=== PATIENT | female | born 1965 | race Caucasian/White ===

== ENCOUNTER 2016-11-13 02:57 | Emergency (ER) | payer MEDICAID ==
[2016-11-13] MEDS ORDERED: Sodium Chloride 0.9% 1,000 ML IV ONE (03:24)
[2016-11-13 03:37] LABS: BASO # 0.1 K/uL (0.0-0.2); BASO % 0.7 % (0.0-2.0); EOS # 0.1 K/uL (0.0-0.7); EOS % 1.4 % (0.0-4.0); HEMATOCRIT 39.1 % (34.0-47.0); LYMPH # 2.2 K/uL (1.0-4.3); LYMPH % 24.4 % (20.0-40.0); MEAN CELL VOLUME 87.8 fL (81.0-99.0); MEAN PLATELET VOLUME 8.9 fL (7.2-11.7); MONO # 0.8 K/uL (0.0-0.8); MONO % 8.8 % (0.0-10.0); RED CELL DISTRIBUTION WIDTH 13.5 % (11.5-14.5); WHITE BLOOD COUNT 9.1 K/uL (4.8-10.8)
[2016-11-13 03:38] LABS: RBC URINE < 1 /hpf (0-3); URINE BACTERIA RARE (<OCC); URINE BILIRUBIN NEGATIVE (NEGATIVE); URINE BLOOD NEGATIVE (NEGATIVE); URINE COLOR Straw (YELLOW); URINE GLUCOSE (UA) NORMAL (Normal); URINE KETONE NEGATIVE (NEGATIVE); URINE LEUKOCYTE ESTERASE NEG Leu/uL (Negative); URINE PROTEIN NEGATIVE (NEGATIVE); URINE UROBILINOGEN NORMAL mg/dL (0.2-1.0); WBC URINE 1 /hpf (0-5)
[2016-11-13 03:39] LABS: CHLORIDE 99 mmol/L (98-107)
[2016-11-13 03:40] LABS: POTASSIUM 3.5 mmol/L (3.6-5.2); SODIUM 137 mmol/L (132-148)
[2016-11-13 03:42] LABS: ALB/GLOB RATIO 1.1 (1.0-2.1); ALKALINE PHOSPHATASE 104 U/L (38-126); ALT/SGPT 27 U/L (9-52); AST/SGOT 17 U/L (14-36); BILIRUBIN,TOTAL 0.6 mg/dL (0.2-1.3); BLOOD UREA NITROGEN 12 mg/dL (7-17); CARBON DIOXIDE 25 mmol/L (22-30); GFR AFRICAN-AMERICAN > 60; GLUCOSE,RANDOM 104 mg/dL (65-105); TOTAL PROTEIN 7.6 g/dL (6.3-8.3)
[2016-11-13 03:43] LABS: CALCIUM 9.4 mg/dl (8.6-10.4)
[2016-11-13] MEDS ORDERED: Aluminum Hydroxide/Magnesium Hydroxide Susp (30 mL) PO STA (05:33)
--- NOTE | 2016-11-13 05:37 | C.PDOC ---
History Of Present Illness A 51 y/o female with H/o Gastritis c/o intermittent epigastric pain and vomiting for the past 3 days. Pt notes the pain is worse after eating and took Pepcid with no relief. Pt reports the pain was worse tonight which prompted the visit. Pt denies diarrhea, constipation, recent travels, sick contact, fever, chills, weakness, dysuria, hematuria, or any other complaints. Time Seen by Provider: 11/13/16 03:20 Chief Complaint (Nursing): Abdominal Pain History Per: Patient History/Exam Limitations: no limitations Onset/Duration Of Symptoms: Days Current Symptoms Are (Timing): Still Present Severity: Moderate Location Of Pain/Discomfort: Epigastric Quality Of Discomfort: "Pain" Associated Symptoms: Vomiting Recent travel outside of the [place]: No Additional History Per: Patient Abnormal Vaginal Bleeding: No Past Medical History Reviewed: Historical Data, Nursing Documentation, Vital Signs Vital Signs: Last Vital Signs Temp 97.9 F 11/13/16 03:06 Pulse 72 11/13/16 03:06 Resp 16 11/13/16 03:06 BP 148/103 H 11/13/16 03:06 Pulse Ox 97 11/13/16 05:38 - Medical History PMH: Back Problems (scoliosis), Depression, HTN, Hypercholesterolemia Surgical History: (x 3) Family History: States: Unknown Family Hx - Social History Hx Alcohol Use: No Hx Substance Use: No - Immunization History Hx Tetanus Toxoid Vaccination: Yes Hx Influenza Vaccination: Yes Hx Pneumococcal Vaccination: No Review Of Systems Constitutional: Negative for: Fever, Chills Gastrointestinal: Positive for: Vomiting, Abdominal Pain. Negative for: Diarrhea Genitourinary: Negative for: Dysuria, Hematuria Neurological: Negative for: Weakness, Numbness Physical Exam - Physical Exam Appears: Non-toxic, No Acute Distress Skin: Warm, Dry Head: Atraumatic, Normacephalic Eye(s): bilateral: Normal Inspection, PERRL, EOMI Oral Mucosa: Moist Chest: Symmetrical Cardiovascular: Rhythm Regular Respiratory: Normal Breath Sounds, No Accessory Muscle Use, No Rales, No Rhonchi , No Wheezing Gastrointestinal/Abdominal: Soft, Tenderness (Epigastric tenderness. NO RUQ and RLQ tenderness.), No Distention, No Guarding, No Rebound Back: Normal Inspection, No CVA Tenderness Neurological/Psych: Oriented x3, Normal Speech, Normal Cognition, Other (No focal deficit) ED Course And Treatment - Laboratory Results Result Diagrams: 11/13/16 03:31 11/13/16 03:31 O2 Sat by Pulse Oximetry: 97 (RA) Pulse Ox Interpretation: Normal Progress Note: Impression: A 51 y/o male c/o intermittent epigastric pain and vomiting for the past 3 days. Plans: Zofran, Morphine, Pepcid, Maalox, Reassess. 0530- c/o burning to epigastric area, and nausea. Maalox and zofran IV given-. 0600- Pt is tolerating po and reports improvement of pain, abdomen now soft non tender. Pt was instructed to follow up with PMD if symptoms returned with increased pain or a development of a fever. Disposition Counseled Patient/Family Regarding: Studies Performed, Diagnosis, Need For Followup - Disposition Referrals: [facility] [Outside] Disposition: HOME/ ROUTINE Disposition Time: 05:54 Condition: STABLE Additional Instructions: Please follow up in clinic Take meds as directed Avoid spicy, greasy foods, milk or dairy products Return to ER if worse Prescriptions: Aluminum Hydroxide/Magnesium H [Maalox 30 ml] 30 ml PO TID #100 ml Phenobarb/Hyoscy/Atropine/Scop [ Tablet] 16.2 mg PO BID #14 tablet Instructions: Gastritis (ED) Print Language: SAMOAN - Clinical Impression Clinical Impression: Gastritis - Scribe Statement The provider has reviewed the documentation as recorded by the Scribdori ho All medical record entries made by the Scribe were at my direction and personally dictated by me. I have reviewed the chart and agree that the record accurately reflects my personal performance of the history, physical exam, medical decision making, and the department course for this patient. I have also personally directed, reviewed, and agree with the discharge instructions and disposition.
[2016-11-13] MEDS ORDERED: Aluminum Hydroxide/Magnesium Hydroxide Susp (30 mL) ONE (05:42)
[2016-11-13 06:10] VITALS: BP 120/60; PULSE 85; RESP 20; TEMP 98.2; O2SAT 100
== END 2016-11-13 06:21 | disposition home or self-care (01) ==
LOC: C.ER 02:57
DX: K29.70 Gastritis, unspecified, without bleeding (principal)
CPT/HCPCS: 80053; 81001; 83690; 84703; 85025; 96361; 96374; 96375; 96376; 99284; J2270; J2405; J7040

== ENCOUNTER 2017-11-06 20:45 | Emergency (ER) | payer MEDICAID, OTHER ==
[2017-11-06 20:54] VITALS: BP 160/90; PULSE 78; RESP 20; TEMP 98.1; O2SAT 96
[2017-11-06] MEDS ORDERED: Lidocaine 2% Inj (20ml) INFIL ONE (20:55)
--- NOTE | 2017-11-06 20:55 | C.PDOC ---
History Of Present Illness 52 yo female w/o significant PMHx BIBA for evaluation of laceration to forehead sustained [employer], tripped outside, while walking, hit the ground. Pt denies LOC, syncope, headache, dizziness, N/V, visual changes, focal deficits, neck pain, CP , SOB, dyspnea, diaphoresis, palpitation, abd. pain, back pain, denies deformity , weakness to B/L UEs and LEs. Ambulatory in ED with stable gait, not in any apparent distress. Time Seen by Provider: 11/06/17 20:48 Chief Complaint (Nursing): Abnormal Skin Integrity History Per: Patient Onset/Duration Of Symptoms: Sudden Onset Past Medical History Reviewed: Historical Data, Nursing Documentation Vital Signs: Last Vital Signs Temp 98.1 F 11/06/17 20:50 Pulse 78 11/06/17 20:50 Resp 20 11/06/17 20:50 BP 160/90 H 11/06/17 20:50 Pulse Ox 96 11/06/17 21:17 - Medical History PMH: Back Problems (scoliosis), Depression, HTN, Hypercholesterolemia Surgical History: (x 3) Family History: States: Unknown Family Hx - Social History Hx Alcohol Use: No Hx Substance Use: No - Immunization History Hx Tetanus Toxoid Vaccination: No Hx Influenza Vaccination: Yes Hx Pneumococcal Vaccination: No Review Of Systems Except As Marked, All Systems Reviewed And Found Negative. Constitutional: Negative for: Fever, Chills Eyes: Negative for: Vision Change ENT: Negative for: Ear Discharge, Nose Discharge Cardiovascular: Negative for: Chest Pain, Palpitations, Edema, Light Headedness Respiratory: Negative for: Shortness of Breath Gastrointestinal: Negative for: Nausea, Vomiting, Abdominal Pain, Diarrhea Genitourinary: Negative for: Dysuria, Incontinence Musculoskeletal: Negative for: Neck Pain, Back Pain Skin: Positive for: Lesions Neurological: Negative for: Weakness, Numbness, Altered Mental Status, Headache , Dizziness Physical Exam - Physical Exam Appears: Well, Non-toxic, No Acute Distress Skin: Normal Color, Warm, Dry, No Ecchymosis Head: Normacephalic, No Tenderness, No Swelling, Laceration (stellate laceration Right forehead 2cm length, cutaneous, mild bloody oozing noted. No wound FB. No palpable deformity.) Eye(s): bilateral: PERRL Ear(s): Bilateral: Normal Nose: No Deformity, No Tenderness Oral Mucosa: Moist, No Drooling, No Trismus Tongue: No Laceration Lips: No Laceration Teeth: No Tender To Palpation, No Loose Throat: No Drooling Neck: Normal ROM, Trachea Midline, No Midline Cervical Tenderness, No Paracervical Tenderness, No Step Off Deformity, Supple Chest: Symmetrical, No Deformity, No Tenderness Cardiovascular: Rhythm Regular Respiratory: No Decreased Breath Sounds, No Accessory Muscle Use, No Stridor, No Wheezing Gastrointestinal/Abdominal: Soft, No Tenderness, No Distention, No Guarding, No Rebound Back: No Vertebral Tenderness, No Paraspinal Tenderness Extremity: Normal ROM, No Tenderness, No Deformity, No Swelling Neurological/Psych: Oriented x3, Normal Speech, Normal Motor, Normal Sensation, Normal Reflexes ED Course And Treatment O2 Sat by Pulse Oximetry: 96 Pulse Ox Interpretation: Normal Progress Note: On re-eval, pt is afebrile, hemodynamicalys table. Non-toxic. Ambulatory in ED with stable gait. PulseOx 96% RA. Head:NC, (+) right forehead laceration closed with sutures, no edema, no palpable deformity. Neck : Supple, (-) midline tenderness. Lungs: CTA B/L, BS equal B/L. CVS: (+)S1S2, reg. Abd: benign, (-) guarding, (-) rebound. Neurologicaly intact. Pt has clinical findings c/w head injury s/po mechanical fall, forehead laceration. Pt advised OBS 48 hrs for any sign of head injury-return ifa fl new hcanges Advise odn wound care. ref. to f/u with PMD in 2 days for re-eavl. return to ED if any worsening or new changes. Laceration - Laceration Repair Right forehead Wound Length (In cm): 2cm Description Of Wound: Stellate Wound Cleansed With: Betadine Anesthesia: Lidocaine 2% Wound Examination: Irrigated With Saline, No FB With Wound Exploration Wound Closure: Suture (#5) Suture Technique And Material Used: Interrupted, Prolene (5-0) Wound Complexity: Simple Disposition Counseled Patient/Family Regarding: Diagnosis, Need For Followup - Disposition Referrals: Eileen Stern MD [Medical Doctor] - Disposition: HOME/ ROUTINE Disposition Time: 21:44 Condition: STABLE Additional Instructions: OBSERVE 48 HOURS FOR ANY SIGN OF HEAD INJURY-INTRACTABLE HEADACHE, VOMITING, VISUAL CHANGES, FOCAL DEFICITS OR ANY OTHER NEW CHANGES-RETURN TO ED IMMEDIATELY FOR RE-EVALUATION. KEEP WOUND CLEAN, DRY, APPLY ANTIBIOTIC CREAM TOPICALLY DAILY TO WOUND SUTURE REMOVAL IN 5-7 DAYS FOLLOW UP WITH PMD IN 2 DAYS FOR RE-EVALUATION. Instructions: Closed Head Injury (DC), Laceration Repair With Stitches (DC) Forms: [employer] (Puerto Rican) Print Language: MALAGASY - Clinical Impression Clinical Impression: Laceration of forehead, Head injury
[2017-11-06] MEDS ORDERED: Tdap Vaccine 0.5 ml Vial (10-64 yrs) IM ONE (21:00)
[2017-11-06] MEDS ORDERED: Lidocaine 2% MPF (5 ml) Inj ONE (21:04)
[2017-11-06] MEDS ORDERED: Tetanus/Diphtheria Toxoids 0.5 ml Syringe IM ONE (21:05)
[2017-11-06] MEDS ORDERED: Bacitracin 500 Units/gm Oint Foilpak UD ONE (21:42)
[2017-11-06] MEDS ORDERED: Bacitracin Ointment 30 GM TUBE TOP STA (21:45)
== END 2017-11-06 22:00 | disposition home or self-care (01) ==
LOC: C.ER 20:45
DX: S01.81XA Laceration without foreign body of other part of head, initial encounter (principal); W01.0XXA Fall on same level from slipping, tripping and stumbling without subsequent striking against object, initial encounter; Y93.01 Activity, walking, marching and hiking; Z23 Encounter for immunization

== ENCOUNTER 2017-11-11 09:50 | Emergency (ER) | payer MEDICAID ==
[2017-11-11 10:09] VITALS: BP 127/81; PULSE 60; RESP 16; TEMP 98.4; O2SAT 99
--- NOTE | 2017-11-11 10:40 | C.PDOC ---
History Of Present Illness 52-year-old female, presents to the emergency department for suture removal. Pt is s/p laceration repair to forehead on 11/06. Denies nausea/vomiting, numbness/ weakness or any other associated symptoms. No other complaints at this time. Time Seen by Provider: 11/11/17 10:31 Chief Complaint (Nursing): Abnormal Skin Integrity History Per: Patient History/Exam Limitations: no limitations Current Symptoms Are (Timing): Still Present Past Medical History Reviewed: Historical Data, Nursing Documentation, Vital Signs Vital Signs: Last Vital Signs Temp 98.4 F 11/11/17 10:06 Pulse 60 11/11/17 10:06 Resp 16 11/11/17 10:06 BP 127/81 11/11/17 10:06 Pulse Ox 99 11/11/17 12:07 - Medical History PMH: Back Problems (scoliosis), Depression, HTN, Hypercholesterolemia Surgical History: (x 3) Family History: States: No Known Family Hx - Social History Hx Alcohol Use: No Hx Substance Use: No - Immunization History Hx Tetanus Toxoid Vaccination: No Hx Influenza Vaccination: Yes Hx Pneumococcal Vaccination: No Review Of Systems Constitutional: Negative for: Fever, Chills Respiratory: Negative for: Shortness of Breath Gastrointestinal: Negative for: Nausea, Vomiting Skin: Negative for: Rash Physical Exam - Physical Exam Appears: Non-toxic, No Acute Distress Skin: Other (right forehead, 6 sutures) Head: Atraumatic, Normacephalic Eye(s): bilateral: Normal Inspection Nose: Normal Oral Mucosa: Moist Lips: Normal Appearing Neck: Normal ROM Chest: Symmetrical Respiratory: No Accessory Muscle Use Extremity: Normal ROM, No Deformity, No Swelling Neurological/Psych: Oriented x3, Normal Speech ED Course And Treatment O2 Sat by Pulse Oximetry: 99 (RA) Pulse Ox Interpretation: Normal Medical Decision Making Medical Decision Makin sutures removed from right forehead without difficulty. Disposition Counseled Patient/Family Regarding: Diagnosis, Need For Followup - Disposition Referrals: [facility] [Outside] [facility] [Outside] Disposition: HOME/ ROUTINE Disposition Time: 10:40 Condition: IMPROVED Instructions: Stitches Removal Forms: [employer] (Fijian) Print Language: YORUBA - Clinical Impression Clinical Impression: Visit for suture removal - Scribe Statement The provider has reviewed the documentation as recorded by the Scribe (Krystal Perez) All medical record entries made by the Pauibdori were at my direction and personally dictated by me. I have reviewed the chart and agree that the record accurately reflects my personal performance of the history, physical exam, medical decision making, and the department course for this patient. I have also personally directed, reviewed, and agree with the discharge instructions and disposition.
== END 2017-11-11 10:55 | disposition home or self-care (01) ==
LOC: C.ER 09:50
DX: Z48.02 Encounter for removal of sutures (principal)

== ENCOUNTER 2018-04-07 03:16 | Emergency (ER) | payer MEDICAID ==
[2018-04-07 03:28] VITALS: BP 145/94; PULSE 68; RESP 22; TEMP 98.7; O2SAT 100
--- NOTE | 2018-04-07 04:28 | C.PDOC ---
History Of Present Illness 52 year old female presents to the ED for evaluation of burning sensation to her left eye which began a few hours prior to arrival. Patient states she accidentally splashed in her eye with Clorox while cleaning the bathroom today. She attempted washing her eye with cold water. She states her eye is now red and reports blurry vision. Patient denies discharge or any other injuries. Time Seen by Provider: 04/07/18 03:37 Chief Complaint (Nursing): Eye Problem History Per: Patient History/Exam Limitations: no limitations Onset/Duration Of Symptoms: Hrs Current Symptoms Are (Timing): Still Present Quality: Burning Associated Symptoms: Decreased Vision. denies: Discharge From Eye Additional History Per: Patient Past Medical History Reviewed: Historical Data, Nursing Documentation, Vital Signs Vital Signs: Last Vital Signs Temp 98.7 F 04/07/18 03:23 Pulse 68 04/07/18 03:23 Resp 22 04/07/18 03:23 BP 145/94 H 04/07/18 03:23 Pulse Ox 100 04/07/18 03:23 - Medical History PMH: Back Problems (scoliosis), Depression, HTN, Hypercholesterolemia Surgical History: (x 3) Family History: States: Unknown Family Hx - Social History Hx Alcohol Use: No Hx Substance Use: No - Immunization History Hx Tetanus Toxoid Vaccination: No Hx Influenza Vaccination: Yes Hx Pneumococcal Vaccination: No Review Of Systems Eyes: Positive for: Other (burning, redness and blurry vision to left eye ) Physical Exam - Physical Exam Appears: Non-toxic, No Acute Distress Skin: Normal Color, Warm, Dry Head: Atraumatic, Normacephalic, No Swelling (periorbital ) Eye(s): bilateral: PERRL, EOMI, left: Other (small subconjunctival hemorrhage. VA 20/20 OU) Oral Mucosa: Moist Neurological/Psych: Oriented x3, Normal Speech, Normal Cognition Gait: Steady Additional Physical Exam Comments: visual acuity 20/20 bilaterally ED Course And Treatment O2 Sat by Pulse Oximetry: 100 (on RA ) Pulse Ox Interpretation: Normal Progress Note: Area was further irrigated. Patient has 20/20 vision in bilateral eyes. On reassessment, patient is sleeping comfortably on stretcher and is stable for discharge. Patient is reassured and advised to follow up with eye doctor on Sunday if symptoms persist. Disposition Counseled Patient/Family Regarding: Diagnosis, Need For Followup, Rx Given - Disposition Referrals: Marvel Hu MD [Staff Provider] - Disposition: HOME/ ROUTINE Disposition Time: 04:25 Condition: STABLE Additional Instructions: PLEASE FOLLOW UP WITH PMD/ EYE WASH EYE UNDER COLD WATER RETURN TO ER IF WORSE Instructions: Subconjunctival Hemorrhage Forms: Accompanied To ED By:, [employer] (Citizen Of [place]) Print Language: MONGOLIAN - Clinical Impression Clinical Impression: Chemical conjunctivitis - PA / [employer] ARCHITECT / Resident Statement MD/DO has reviewed & agrees with the documentation as recorded. - Scribe Statement The provider has reviewed the documentation as recorded by the Scribe (Michelle Ramos) All medical record entries made by the Scribe were at my direction and personally dictated by me. I have reviewed the chart and agree that the record accurately reflects my personal performance of the history, physical exam, medical decision making, and the department course for this patient. I have also personally directed, reviewed, and agree with the discharge instructions and disposition.
== END 2018-04-07 06:23 | disposition home or self-care (01) ==
LOC: C.ER 03:16
DX: H10.212 Acute toxic conjunctivitis, left eye (principal)